=== PATIENT | female | born 1940 | race Caucasian/White ===

== ENCOUNTER 2020-04-13 10:52 | Emergency (ER) | payer OTHER ==
[~2020-04-13] VITALS: Ht 154.9 cm; Wt 78.0 kg
[2020-04-13 13:18] VITALS: BP 120/76
== END 2020-04-13 13:18 | disposition home or self-care (01) ==
LOC: ER 10:52
DX: R05 Cough (principal); E78.00 Pure hypercholesterolemia, unspecified; I49.9 Cardiac arrhythmia, unspecified; Z20.828 Contact with and (suspected) exposure to other viral communicable diseases; Z91.048 Other nonmedicinal substance allergy status
CPT/HCPCS: 71045; 87635; 93005; 99283; C9803; 99285